=== PATIENT | female | born 1975 | race Caucasian/White ===

== ENCOUNTER 2020-01-25 04:39 | Emergency (ER) | payer BC ==
[2020-01-25] MEDS ORDERED: cefTRIAXone 1 GM Vial IM STA (06:19)
--- NOTE | 2020-01-25 06:25 | EDM.PDOC ---
ED HPI GENERAL MEDICAL PROBLEM - General Chief Complaint: ENT Problem Stated Complaint: facial swelling and broken tooth Time Seen by Provider: 01/25/20 04:53 Source of Information: Reports: Patient History Limitations: Reports: No Limitations - History of Present Illness INITIAL COMMENTS - FREE TEXT/NARRATIVE: Mrs. Duran is a very pleasant 44-year-old woman with a past medical history significant for diabetes, who states that she broke an upper right tooth while eating dinner this past Sunday night, 01/23/2020. She was seen by Dr. Elier Castellon at the walk-in clinic on 01/24/2020, and prescribed penicillin VK, 500 mg po QID, she states she started Sunday and has been taking as prescribed. She has taken a total of 4 doses so far. She then discovered the right side of her face was swollen this morning. Minimal pain, and no associated fever. No prior similar symptoms. The patient states that she took 600 mg of [id number]-[id number]-[id number] ibuprofen around 02:00 this morning. Here in the ED, the patient's initial BP is found to be modestly elevated at 161/80, otherwise, she is hemodynamically stable, afebrile, saturating 98% on room air. Other than her dental issue and facial swelling, the patient denies having a recent fever, chills, sore throat, ear pain, nasal or sinus congestion, cough, dyspnea, chest pain, palpitations, nausea, vomiting, constipation, diarrhea, abdominal pain, urinary symptoms, recent weight gain or weight loss, recent bloody bowel movements or black bowel movements, recent joint aches, headaches, or rashes. The patient's PCP is CLAIRE Newman. Her Emergency Planning And Response Manager is Dr. Francis Naidu. Her Single End Sewer is Dr. Luca Lynch. Right Tooth/Teeth Pain Score (Numeric/FACES): 4 - Related Data Allergies Allergy/AdvReac Type Severity Reaction Status Date / Time atorvastatin [From Lipitor] Allergy Severe Difficulty Verified 01/25/20 04:52 Breathing Past Medical History Cardiovascular History: Reports: High Cholesterol, Hypertension Genitourinary History: Reports: Chronic Renal Insuffiency Endocrine/Metabolic History: Reports: Diabetes, Type II, Obesity/BMI 30+ - Past Surgical History HEENT Surgical History: Reports: Adenoidectomy, Tonsillectomy Female Surgical History: Reports: Section (x 1), Endometrial Ablation, Other (See Below) (Ureteral surgery as an infant) Social & Family History - Tobacco Use Smoking Status *Q: Former Smoker Years of Tobacco use: 16 Packs/Tins Daily: 2 Month/Year Tobacco Last Used: Quit 2007 - Caffeine Use Caffeine Use: Reports: Coffee - Alcohol Use Alcohol Use History: No - Recreational Drug Use Recreational Drug Use: No - Living Situation & Occupation Living situation: Reports: , with Spouse, with Family (Daughter + her 2 kids + her boyfriend) Occupation: Employed (Medical records) ED ROS ENT - Review of Systems Review Of Systems: Comprehensive ROS is negative, except as noted in HPI. ED EXAM, ENT - Physical Exam Exam: See Below Exam Limited By: No Limitations General Appearance: Alert, WD/WN, No Apparent Distress Eye Exam: Bilateral Eye: EOMI, Normal Inspection Ears: Normal External Exam, Normal Canal, Hearing Grossly Normal, Normal TMs Nose: Normal Inspection, Normal Mucousa, No Blood Mouth/Throat: Normal Lips, Normal Oropharynx, Other (Tooth #1 absent. Tooth #3 with amalgam filling. Tooth #6 (the tooth of concern) with fracture and decay. No significant associated gingival swelling, and no pointing seen. Tooth #14 with amalgam filling. Teeth #16, 17, 18 absent. Tooth #19 with amalgam filling. Tooth #30 absent. Tooth #32 absent.) Head: Atraumatic, Facial Swelling (With mild erythema over the right maxilla. The swelling does not extend under the right mandible.) Neck: Normal Inspection, Supple, Non-Tender, Full Range of Motion. No: Lymphadenopathy (L), Lymphadenopathy (R) Course - Vital Signs Last Recorded V/S: Last Vital Signs Temp 36.6 C 01/25/20 04:47 Pulse 74 01/25/20 04:47 Resp 18 01/25/20 04:47 BP 161/80 H 01/25/20 04:47 Pulse Ox 98 01/25/20 04:47 - Orders/Labs/Meds Meds: Medications Discontinued Medications Generic Name Dose Route Start Last Admin Trade Name Freq PRN Reason Stop Dose Admin Ceftriaxone Sodium 1 gm 01/25/20 06:19 01/25/20 06:35 Rocephin IM 01/25/20 06:20 1 gm ONETIME STA Administration - Re-Assessments/Exams Free Text/Narrative Re-Assessment/Exam: 01/25/20 06:19 As above, the patient broke tooth #6 on Sunday night, 01/23/2020, was started on penicillin VK 500 mg po QID on Sunday, which she has taken 4 doses thus far, then woke up this morning with swelling over her right maxilla. No fever. No obvious abscess on dental examination, although tooth #6 is fractured and appears to be somewhat carious. The patient appears to have an oral facial space infection. I do not believe that it has been long enough to form an abscess, therefore I do not believe a CT of the face with contrast is indicated at this time. I believe that PCN VK is the right antibiotic for her, however, she has not been on it long enough to get control of the infection, leading to the swelling. For today's purposes, she will receive a single injection of IM Rocephin 1 g, then continue her PCN VK as prescribed. She should apply warm compresses. She should expect that the swelling will get worse before it gets better. She is to then follow-up with her dentist at her previously scheduled appointment this coming 01/27/2020. Departure - Departure Time of Disposition: 06:22 Disposition: Home, Self-Care 01 Condition: Good Clinical Impression: Dental infection - Discharge Information *PRESCRIPTION DRUG MONITORING PROGRAM REVIEWED*: Not Applicable *COPY OF PRESCRIPTION DRUG MONITORING REPORT IN PATIENT FADIA: Not Applicable Instructions: Dental Abscess, [id number] Referrals: Nilda Estrada PA-C [Primary Care Provider] - Forms: ED Department Discharge Additional Instructions: You were seen in the emergency room after breaking an upper right tooth on Sunday night, being started on penicillin on Sunday, then waking up this morning with right facial swelling. Based on your history and physical exam, you are suffering from oralfacial space swelling due to a dental infection. You were given a single injection of the antibiotic Rocephin while in the ER. Going forward, we recommend that you continue to take your previously prescribed penicillin, 1 tablet every 6 hours, as prescribed. We recommend that you apply warm compresses to your face, to stimulate local circulation. You may continue to take [id number] ibuprofen as needed for discomfort. You should expect that the swelling will get worse before it gets better. Follow-up with your dentist at your previously scheduled appointment this coming 01/27/2020. If any other problems, please do not hesitate to return to the ER. Sepsis Event Note (ED) - Evaluation Sepsis Screening Result: No Definite Risk - Focused Exam Vital Signs: Vital Signs Temp Pulse Resp BP Pulse Ox 01/25/20 04:47 36.6 C 74 18 161/80 H 98
== END 2020-01-25 06:40 | disposition home or self-care (01) ==
LOC: JD.ED 04:39
DX: K04.7 Periapical abscess without sinus (principal); K02.9 Dental caries, unspecified; K03.81 Cracked tooth; I12.9 Hypertensive chronic kidney disease with stage 1 through stage 4 chronic kidney disease, or unspecified chronic kidney disease; E11.22 Type 2 diabetes mellitus with diabetic chronic kidney disease; N18.9 Chronic kidney disease, unspecified; E66.9 Obesity, unspecified; Z87.891 Personal history of nicotine dependence; Z88.8 Allergy status to other drugs, medicaments and biological substances; Z68.41 Body mass index [BMI] 40.0-44.9, adult
CPT/HCPCS: 96372; 99282; J0696; 99283

== ENCOUNTER 2020-02-15 07:55 | Emergency (ER) | payer BC ==
[2020-02-15] MEDS ORDERED: Sodium Chloride 0.9% 10 ML Syringe FLUSH PRN (09:03)
[2020-02-15] MEDS ORDERED: Sodium Chloride 0.9% 1,000 ML IV ONE (09:03)
--- NOTE | 2020-02-15 09:11 | EDM.PDOC ---
ED HPI GENERAL MEDICAL PROBLEM - General Chief Complaint: Genitourinary Problem Stated Complaint: UNABLE TO EAT/COLD/JOINT PAIN/FREQUENT URINATION Time Seen by Provider: 02/15/20 08:42 Source of Information: Reports: Patient History Limitations: Reports: No Limitations - History of Present Illness INITIAL COMMENTS - FREE TEXT/NARRATIVE: Mrs. Duran is a very pleasant 44-year-old woman who states that she developed a fever, bilateral flank pain, and urinary frequency without dysuria on or about 02/11/2020. She states that she was seen at the walk-in clinic on , 02/13/2020. She states that a urinalysis was performed, and that she was told that she had a urinary tract infection. She was also swabbed for the SARS-CoV-2 virus, however, she has not been given that test result yet. She was prescribed ciprofloxacin once a day, which she states she has been taking as prescribed. She now presents the ED stating that she has had continued symptoms, along with decreased appetite, myalgias, arthralgias, and nausea with vomiting for solid food, but not for any liquids. She then developed a nonproductive cough last night. No recent constipation or diarrhea. Here in the ED, the patient is found to be tachycardic at 118 bpm, otherwise, she is hemodynamic stable, afebrile, saturating 94% on room air. The patient states that she ordinarily checks her blood glucose 3 times a day, but since she has been feeling ill, she has not checked it since Sunday. Prior to Sunday, the patient denies having a recent fever, chills, sore throat, ear pain, nasal or sinus congestion, cough, dyspnea, chest pain, palpitations, nausea, vomiting, constipation, diarrhea, abdominal pain, urinary symptoms, recent weight gain or weight loss, recent bloody bowel movements or black bowel movements, recent joint aches, headaches, or rashes. The patient's PCP is CLAIRE Newman. Her Health Informatics Instructor is Dr. Francis Naidu. Her Caretaker Grounds is Dr. Luca Lynch. Generalized Pain Score (Numeric/FACES): 7 - Related Data Allergies Allergy/AdvReac Type Severity Reaction Status Date / Time atorvastatin [From Lipitor] Allergy Severe Difficulty Verified 02/15/20 08:16 Breathing Home Meds: Home Meds Ciprofloxacin HCl [Cipro] 500 mg PO DAILY 02/15/20 [History] FLUoxetine HCl [Fluoxetine HCl] 20 mg PO DAILY 02/15/20 [History] Losartan [Cozaar] 50 mg PO DAILY 02/15/20 [History] Metoprolol Tartrate 50 mg PO DAILY 02/15/20 [History] Omeprazole 20 mg PO DAILY 02/15/20 [History] Ondansetron [Zofran ODT] 1 tab PO Q8H PRN #10 tab.dis 02/15/20 [Rx] Simvastatin 40 mg PO DAILY 02/15/20 [History] Trujeo. 36 units SQ DAILY 02/15/20 [History] metFORMIN HCl [Metformin HCl] 1,000 mg PO BID 02/15/20 [History] Past Medical History Cardiovascular History: Reports: High Cholesterol, Hypertension Genitourinary History: Reports: Chronic Renal Insuffiency Endocrine/Metabolic History: Reports: Diabetes, Type II, Obesity/BMI 30+ - Past Surgical History HEENT Surgical History: Reports: Adenoidectomy, Tonsillectomy Female Surgical History: Reports: Section (x 1), Endometrial Ablation, Other (See Below) (Ureteral surgery as an ) Social & Family History - Tobacco Use Years of Tobacco use: 16 Packs/Tins Daily: 2 Month/Year Tobacco Last Used: Quit 2007 - Caffeine Use Caffeine Use: Reports: Coffee - Alcohol Use Alcohol Use History: No - Recreational Drug Use Recreational Drug Use: No - Living Situation & Occupation Living situation: Reports: , with Spouse, with Family (Daughter + her 2 kids + her boyfriend) Occupation: Employed (Medical records) ED ROS GENERAL - Review of Systems Review Of Systems: Comprehensive ROS is negative, except as noted in HPI. ED EXAM, GENERAL - Physical Exam Exam: See Below Exam Limited By: No Limitations General Appearance: Alert, WD/WN, Other (Notably tachypneic) Eye Exam: Bilateral Eye: EOMI, Normal Inspection Ears: Normal External Exam, Hearing Grossly Normal Nose: Normal Inspection Throat/Mouth: Normal Inspection, Normal Lips, Normal Voice, No Airway Compromise Head: Atraumatic, Normocephalic Neck: Normal Inspection, Full Range of Motion Respiratory/Chest: No Respiratory Distress, Lungs Clear, Normal Breath Sounds, No Accessory Muscle Use Cardiovascular: Normal Peripheral Pulses, No Gallop, No JVD, No Murmur, No Rub, Tachycardia (regular) Peripheral Pulses: 3+: Radial (L), Radial (R) GI/Abdominal: Normal Bowel Sounds, Soft, Non-Tender, No Organomegaly, No Distention, No Abnormal Bruit, No Mass Back Exam: Normal Inspection, Full Range of Motion, CVA Tenderness (L) (very mild, lower), CVA Tenderness (R) (very mild, lower) Extremities: Normal Inspection, Normal Range of Motion, Normal Capillary Refill Neurological: Alert, Oriented, Normal Cognition, No Motor/Sensory Deficits Psychiatric: Normal Affect Skin Exam: Warm, Intact, Normal Color, No Rash, Diaphoretic Course - Vital Signs Last Recorded V/S: Last Vital Signs Temp 36.4 C 02/15/20 08:11 Pulse 118 H 02/15/20 08:11 Resp 28 H 02/15/20 08:11 BP 129/78 02/15/20 08:11 Pulse Ox 94 L 02/15/20 08:11 - Orders/Labs/Meds Orders: Active Orders 24 hr Category Date Time Status Accu Check [Blood Glucose Check, Bedside] [RC] ONETIME Care 02/15/20 08:16 Active Blood Pressure Mgt: Sepsis [RC] Q15MX2 Care 02/15/20 09:04 Active Chest 2V [CR] Stat Exams 02/15/20 09:03 Taken CULTURE BLOOD [BC] Stat Lab 02/15/20 09:25 Received CULTURE BLOOD [BC] Stat Lab 02/15/20 09:32 Received Sodium Chloride 0.9% [Saline Flush] Med 02/15/20 09:03 Active 10 ml FLUSH ASDIRECTED PRN Blood Culture x2 Reflex Set [OM.PC] Stat Oth 02/15/20 09:03 Ordered Saline Lock Insert [OM.PC] Stat Oth 02/15/20 09:03 Ordered Medication Orders Sodium Chloride (Saline Flush) 10 ml FLUSH ASDIRECTED PRN PRN Reason: Keep Vein Open Last Admin: 02/15/20 09:56 Dose: 10 ml Documented by: [facility] Labs: Laboratory Tests 02/15/20 02/15/20 02/15/20 Range/Units 09:25 09:25 09:25 WBC 6.57 (3.98-10.04) K/mm3 RBC 4.54 (3.98-5.22) M/mm3 Hgb 13.5 (11.2-15.7) gm/dl Hct 41.4 (34.1-44.9) % MCV 91.2 (79.4-94.8) fl MCH 29.7 (25.6-32.2) pg MCHC 32.6 (32.2-35.5) g/dl RDW Std Deviation 45.7 (36.4-46.3) fL Plt Count 268 (182-369) K/mm3 MPV 9.0 L (9.4-12.3) fl Neutrophils % (Manual) 94 H (40-60) % Band Neutrophils % 0 (0-10) % Lymphocytes % (Manual) 6 L (20-40) % Atypical Lymphs % 0 % Monocytes % (Manual) 0 L (2-10) % Eosinophils % (Manual) 0 L (0.7-5.8) % Basophils % (Manual) 0 L (0.1-1.2) Platelet Estimate Adequate RBC Morph Comment Normal Sodium 136 (136-145) mEq/L Potassium 3.7 (3.5-5.1) mEq/L Chloride 99 (98-107) mEq/L Carbon Dioxide 19 L (21-32) mEq/L Anion Gap 21.7 H (5-15) BUN 18 (7-18) mg/dL Creatinine 1.3 H (0.55-1.02) mg/dL Est Cr Clr Drug Dosing 42.77 mL/min Estimated GFR (MDRD) 44 (>60) mL/min BUN/Creatinine Ratio 13.8 L (14-18) Glucose 161 H (74-106) mg/dL POC Glucose (70-105) mg/dL Lactic Acid 0.9 (0.4-2.0) mmol/L Calcium 8.8 (8.5-10.1) mg/dL Total Bilirubin 0.4 (0.2-1.0) mg/dL AST 25 (15-37) U/L ALT 44 (14-59) U/L Alkaline Phosphatase 101 (46-116) U/L C-Reactive Protein 24.3 H* (<1.0) mg/dL Total Protein 7.8 (6.4-8.2) g/dl Albumin 2.6 L (3.4-5.0) g/dl Globulin 5.2 gm/dL Albumin/Globulin Ratio 0.5 L (1-2) Urine Color (Yellow) Urine Appearance (Clear) Urine pH (5.0-8.0) Ur Specific [place] (1.005-1.030) Urine Protein (Negative) Urine Glucose (UA) (Negative) Urine Ketones (Negative) Urine Occult Blood (Negative) Urine Nitrite (Negative) Urine Bilirubin (Negative) Urine Urobilinogen (0.2-1.0) Ur Leukocyte Esterase (Negative) Urine RBC (0-5) /hpf Urine WBC (0-5) /hpf Ur Epithelial Cells (0-5) /hpf Urine Bacteria (FEW) /hpf Urine Mucus (FEW) /hpf Urine HCG, Qual (NEGATIVE) SARS-CoV-2 RNA (RAQUEL) (NEGATIVE) 02/15/20 02/15/20 02/15/20 Range/Units 09:28 09:32 09:50 WBC (3.98-10.04) K/mm3 RBC (3.98-5.22) M/mm3 Hgb (11.2-15.7) gm/dl Hct (34.1-44.9) % MCV (79.4-94.8) fl MCH (25.6-32.2) pg MCHC (32.2-35.5) g/dl RDW Std Deviation (36.4-46.3) fL Plt Count (182-369) K/mm3 MPV (9.4-12.3) fl Neutrophils % (Manual) (40-60) % Band Neutrophils % (0-10) % Lymphocytes % (Manual) (20-40) % Atypical Lymphs % % Monocytes % (Manual) (2-10) % Eosinophils % (Manual) (0.7-5.8) % Basophils % (Manual) (0.1-1.2) Platelet Estimate RBC Morph Comment Sodium (136-145) mEq/L Potassium (3.5-5.1) mEq/L Chloride (98-107) mEq/L Carbon Dioxide (21-32) mEq/L Anion Gap (5-15) BUN (7-18) mg/dL Creatinine (0.55-1.02) mg/dL Est Cr Clr Drug Dosing mL/min Estimated GFR (MDRD) (>60) mL/min BUN/Creatinine Ratio (14-18) Glucose (74-106) mg/dL POC Glucose 152 H (70-105) mg/dL Lactic Acid (0.4-2.0) mmol/L Calcium (8.5-10.1) mg/dL Total Bilirubin (0.2-1.0) mg/dL AST (15-37) U/L ALT (14-59) U/L Alkaline Phosphatase (46-116) U/L C-Reactive Protein (<1.0) mg/dL Total Protein (6.4-8.2) g/dl Albumin (3.4-5.0) g/dl Globulin gm/dL Albumin/Globulin Ratio (1-2) Urine Color Yellow (Yellow) Urine Appearance Clear (Clear) Urine pH 6.0 (5.0-8.0) Ur Specific [place] > or = 1.030 (1.005-1.030) Urine Protein 3+ H (Negative) Urine Glucose (UA) Negative (Negative) Urine Ketones Trace H (Negative) Urine Occult Blood 2+ H (Negative) Urine Nitrite Negative (Negative) Urine Bilirubin 1+ H (Negative) Urine Urobilinogen 0.2 (0.2-1.0) Ur Leukocyte Esterase Negative (Negative) Urine RBC 0-5 (0-5) /hpf Urine WBC 5-10 H (0-5) /hpf Ur Epithelial Cells 0-5 (0-5) /hpf Urine Bacteria Few (FEW) /hpf Urine Mucus Rare (FEW) /hpf Urine HCG, Qual (NEGATIVE) SARS-CoV-2 RNA (RAQUEL) Positive H (NEGATIVE) 02/15/20 Range/Units 09:50 WBC (3.98-10.04) K/mm3 RBC (3.98-5.22) M/mm3 Hgb (11.2-15.7) gm/dl Hct (34.1-44.9) % MCV (79.4-94.8) fl MCH (25.6-32.2) pg MCHC (32.2-35.5) g/dl RDW Std Deviation (36.4-46.3) fL Plt Count (182-369) K/mm3 MPV (9.4-12.3) fl Neutrophils % (Manual) (40-60) % Band Neutrophils % (0-10) % Lymphocytes % (Manual) (20-40) % Atypical Lymphs % % Monocytes % (Manual) (2-10) % Eosinophils % (Manual) (0.7-5.8) % Basophils % (Manual) (0.1-1.2) Platelet Estimate RBC Morph Comment Sodium (136-145) mEq/L Potassium (3.5-5.1) mEq/L Chloride (98-107) mEq/L Carbon Dioxide (21-32) mEq/L Anion Gap (5-15) BUN (7-18) mg/dL Creatinine (0.55-1.02) mg/dL Est Cr Clr Drug Dosing mL/min Estimated GFR (MDRD) (>60) mL/min BUN/Creatinine Ratio (14-18) Glucose (74-106) mg/dL POC Glucose (70-105) mg/dL Lactic Acid (0.4-2.0) mmol/L Calcium (8.5-10.1) mg/dL Total Bilirubin (0.2-1.0) mg/dL AST (15-37) U/L ALT (14-59) U/L Alkaline Phosphatase (46-116) U/L C-Reactive Protein (<1.0) mg/dL Total Protein (6.4-8.2) g/dl Albumin (3.4-5.0) g/dl Globulin gm/dL Albumin/Globulin Ratio (1-2) Urine Color (Yellow) Urine Appearance (Clear) Urine pH (5.0-8.0) Ur Specific [place] (1.005-1.030) Urine Protein (Negative) Urine Glucose (UA) (Negative) Urine Ketones (Negative) Urine Occult Blood (Negative) Urine Nitrite (Negative) Urine Bilirubin (Negative) Urine Urobilinogen (0.2-1.0) Ur Leukocyte Esterase (Negative) Urine RBC (0-5) /hpf Urine WBC (0-5) /hpf Ur Epithelial Cells (0-5) /hpf Urine Bacteria (FEW) /hpf Urine Mucus (FEW) /hpf Urine HCG, Qual Negative (NEGATIVE) SARS-CoV-2 RNA (RAQUEL) (NEGATIVE) Meds: Medications Generic Name Dose Route Start Last Admin Trade Name Freq PRN Reason Stop Dose Admin Sodium Chloride 10 ml 02/15/20 09:03 02/15/20 09:56 Saline Flush FLUSH 10 ml ASDIRECTED PRN Administration Keep Vein Open Discontinued Medications Generic Name Dose Route Start Last Admin Trade Name Lucinda PRN Reason Stop Dose Admin Sodium Chloride 1,000 mls @ 999 mls/hr 02/15/20 09:03 02/15/20 09:56 Normal Saline IV 02/15/20 10:03 999 mls/hr BOLUS ONE Administration Protocol Ondansetron HCl 4 mg 02/15/20 12:18 02/15/20 12:28 Zofran Odt PO 02/15/20 12:19 4 mg ONETIME ONE Administration - Re-Assessments/Exams Free Text/Narrative Re-Assessment/Exam: 02/15/20 09:06 As above, the patient developed a fever, urinary frequency, and bilateral flank pain on or about 02/11/2020, then nausea and emesis with solid food and , 02/12/2020. She was seen at the walk-in clinic and told that she has a UTI. She was started on ciprofloxacin once a day, which she has been taking as prescribed, but she continues to have the same symptoms, along with decreased appetite, myalgias, and arthralgias. She developed a nonproductive cough last night. Here in the ED, she is tachycardic and tachypneic, although afebrile. Lamination, she is noted to be quite diaphoretic. She has very mild bilateral lower flank tenderness, otherwise, her physical exam is unremarkable. I have ordered a work-up that includes an Accu-Chek, blood work, sets of blood cultures, a urinalysis, a urine test, a chest x-ray, and a swab for the SARS-CoV-2 virus. In the meantime, the patient will be given IV fluid. 02/15/20 10:31 Notified by Johnny in laboratory that the patient's swab for the SARS-CoV-2 virus has returned positive. 02/15/20 10:46 The patient's CBC is unremarkable. Her CMP is remarkable for a bicarbonate slightly depressed at 19, with an anion gap elevated 21.7. Her Cr slightly elevated at 1.3 with a BUN normal at 18, and blood glucose elevated at 161, with the remainder of her CMP being unremarkable. Her lactic acid level is within normal limits at 0.9. Her CRP is elevated at 24.3. Her urinalysis is remarkable for 2+ occult blood with 0-5 RBCs, negative leukocyte esterase with 5-10 WBCs, nitrate negative with few bacteria, and 0-5 squamous epithelial cells. Her urine test is negative. The chest x-ray has not yet been obtained. 02/15/20 11:04 Two-view chest radiograph reviewed. The cardiac silhouette is within normal limits. No pulmonary vascular congestion. No pleural effusions. There are bilateral hazy infiltrates, consistent with a viral pneumonia or COVID-19. No pneumothorax. Formal read per the Radiologist pending. 02/15/20 12:09 Test results discussed with the patient. Above, the patient is COVID-19, but the remainder of her work-up was grossly unremarkable. I explained to the patient that the trigger for initiation of treatment for COVID-19 is hypoxemia, and at present, the patient is not hypoxemic. I therefore do not have an indication to admit her to the hospital. You will need to quarantine until she tests negative. I explained that there are no specific treatments for her to take, and I recommended against mrql-gwz-mxqdoyh cough or cold remedies, as they have been shown to be of no benefit. Additionally, I advised against routine treatment of fever, as fever is an important part of her immune response to the virus. I suggested that she purchase, if she can, and ixrn-huz-siiczmx pulse o ximeter, because if she becomes hypoxemic, she needs to return to the ED to initiate treatment. The patient expressed understanding. Departure - Departure Time of Disposition: 12:11 Disposition: Home, Self-Care 01 Condition: Good Clinical Impression: COVID-19, Hyperglycemia due to type 2 diabetes mellitus - Discharge Information *PRESCRIPTION DRUG MONITORING PROGRAM REVIEWED*: Not Applicable *COPY OF PRESCRIPTION DRUG MONITORING REPORT IN PATIENT FADIA: Not Applicable Prescriptions: Ondansetron [Zofran ODT] 1 tab PO Q8H PRN #10 tab.dis PRN Reason: Nausea/Vomiting Instructions: COVID-19 Referrals: Nilda Estrada PA-C [Primary Care Provider] - Francis Naidu MD [Physician] - Luca Lynch MD [Ordering Only Provider] - Forms: ED Department Discharge Additional Instructions: You were seen in the emergency room for urinary frequency, decreased appetite, muscle aches, joint aches, nausea with vomiting of solid food, a fever, and a dry cough. Work-up in the ER included an Accu-Chek, blood work, 2 sets of blood cultures, a urinalysis, a urine test, a chest x-ray, and a swab for the SARS-CoV-2 virus. Your work-up was remarkable for your blood glucose being elevated at 161, and the test for the SARS-CoV-2 virus returning positive. The remainder of your work-up was unremarkable. The antibiotics that you are currently taking for treatment of a urinary tract infection appears to be effective. We recommend that you continue to take the ciprofloxacin once a day as prescribed. As discussed, it is imperative that you quarantine until you tested negative. On average people with COVID-19 remain test-positive for 10 days, although some people remain positive for much longer. As discussed, there are no specific treatments for your symptoms. We recommend that you not take any asov-ejf-nekreov cough or cold remedies, as they have been shown to be of no benefit. Further, we advise that you not take any lzrc-jrt-znhmitw Tylenol or ibuprofen to treat your symptoms of fever, as fever is an important part of your immune response to this virus. A prescription for the anti-nausea medicine Zofran has been sent to the [facility], located just south and across the [address] from [facility]. They will be open until 4:00 this afternoon. You may dissolve 1 tablet of Zofran on your tongue up to every 8 hours, as needed for nausea/vomiting. If possible, we recommend that you purchase an gupg-eoi-ylmnjwe pulse oximeter. If your oxygen saturation drops to the low 90s or high 80s, you need to return to the ER for reevaluation. If any other problems, please do not hesitate to return to the ER. Sepsis Event Note (ED) - Evaluation Sepsis Screening Result: No Definite Risk - Focused Exam Vital Signs: Vital Signs Temp Pulse Resp BP Pulse Ox 02/15/20 08:11 36.4 C 118 H 28 H 129/78 94 L - My Orders Last 24 Hours: My Active Orders 02/15/20 08:16 Accu Check [Blood Glucose Check, Bedside] [RC] ONETIME 02/15/20 09:03 Chest 2V [CR] Stat Sodium Chloride 0.9% [Saline Flush] 10 ml FLUSH ASDIRECTED PRN Blood Culture x2 Reflex Set [OM.PC] Stat Saline Lock Insert [OM.PC] Stat 02/15/20 09:04 Blood Pressure Mgt: Sepsis [RC] Q15MX2 02/15/20 09:25 CULTURE BLOOD [BC] Stat 02/15/20 09:32 CULTURE BLOOD [BC] Stat - Assessment/Plan Last 24 Hours: My Active Orders 02/15/20 08:16 Accu Check [Blood Glucose Check, Bedside] [RC] ONETIME 02/15/20 09:03 Chest 2V [CR] Stat Sodium Chloride 0.9% [Saline Flush] 10 ml FLUSH ASDIRECTED PRN Blood Culture x2 Reflex Set [OM.PC] Stat Saline Lock Insert [OM.PC] Stat 02/15/20 09:04 Blood Pressure Mgt: Sepsis [RC] Q15MX2 02/15/20 09:25 CULTURE BLOOD [BC] Stat 02/15/20 09:32 CULTURE BLOOD [BC] Stat
[2020-02-15] MEDS ORDERED: Ondansetron 4 MG Tab.DIS PO ONE (12:18)
== END 2020-02-15 12:40 | disposition home or self-care (01) ==
LOC: JD.ED 07:55
DX: U07.1 COVID-19 (principal); E11.65 Type 2 diabetes mellitus with hyperglycemia; E78.00 Pure hypercholesterolemia, unspecified; I12.9 Hypertensive chronic kidney disease with stage 1 through stage 4 chronic kidney disease, or unspecified chronic kidney disease; N18.9 Chronic kidney disease, unspecified; E11.22 Type 2 diabetes mellitus with diabetic chronic kidney disease; F17.210 Nicotine dependence, cigarettes, uncomplicated; E66.9 Obesity, unspecified; Z68.41 Body mass index [BMI] 40.0-44.9, adult; Z88.8 Allergy status to other drugs, medicaments and biological substances; Z79.899 Other long term (current) drug therapy; Z20.828 Contact with and (suspected) exposure to other viral communicable diseases; Z79.84 Long term (current) use of oral hypoglycemic drugs
CPT/HCPCS: 36415; 71046; 80053; 81001; 81025; 82962; 83605; 85007; 85027; 86140; 87040; 87635; 96360; 99284; A9270; J7030; U0002

== ENCOUNTER 2020-04-13 08:51 | Emergency (ER) | payer BC ==
--- NOTE | 2020-04-13 09:51 | EDM.PDOC ---
ED HPI GENERAL MEDICAL PROBLEM - General Chief Complaint: Respiratory Problem Stated Complaint: SOB Time Seen by Provider: 04/13/20 09:30 Source of Information: Reports: Patient History Limitations: Reports: No Limitations - History of Present Illness INITIAL COMMENTS - FREE TEXT/NARRATIVE: 44-year-old female with a history of Covid diagnosis on February 12. She states on that day she went to the clinic and saw her provider and she was started on a prednisone pack for shortness of breath and cough she said that did seem to help but within 3 days of being off of the prednisone pack her cough and shortness of breath again worsened and she returned to the walk-in clinic where they did a chest x-ray and questioned pneumonia so then started her on doxycycline and a second prednisone pack. She states that that did help as well but since being off of that she has had increased shortness of breath. Of note she was also given an albuterol inhaler which she was instructed to take every 4 hours and as needed. She states she has been using this since her February 12 diagnosis every 4 hours and every 2 hours in between. She has been unable to sleep lying flat, so she has been sleeping in her recliner since February 12. She states that she now has a productive cough of green chunks of sputum and has significant shortness of breath at rest so she presents to the ED today. Denies any other respiratory symptoms, chest pain, fever chills, nausea, vomiting, diarrhea, or general malaise. Patient is not a smoker. She is an insulin-dependent diabetic for which she takes Toujeo, she has a history of hypertension and is treated with metoprolol and Cozaar, and she has a history of high cholesterol. No other significant medical history noted. Onset: Gradual Treatments INDUSTRIAL SEWER: Reports: Breathing Treatments - Related Data Allergies Allergy/AdvReac Type Severity Reaction Status Date / Time atorvastatin [From Lipitor] Allergy Severe Difficulty Verified 04/13/20 08:58 Breathing Home Meds: Home Meds FLUoxetine HCl [Fluoxetine HCl] 20 mg PO DAILY 02/15/20 [History] Losartan [Cozaar] 50 mg PO DAILY 02/15/20 [History] Metoprolol Tartrate 50 mg PO DAILY 02/15/20 [History] Omeprazole 20 mg PO DAILY 02/15/20 [History] Ondansetron [Zofran ODT] 1 tab PO Q8H PRN #10 tab.dis 02/15/20 [Rx] Simvastatin 40 mg PO DAILY 02/15/20 [History] Trujeo. 36 units SQ DAILY 02/15/20 [History] metFORMIN HCl [Metformin HCl] 1,000 mg PO BID 02/15/20 [History] Past Medical History Cardiovascular History: Reports: High Cholesterol, Hypertension Gastrointestinal History: Reports: GERD Genitourinary History: Reports: Chronic Renal Insuffiency CUSTOMER OPERATIONS ASSOCIATE History: Reports: Other (See Below) Other CUSTOMER OPERATIONS ASSOCIATE History: c sections Endocrine/Metabolic History: Reports: Diabetes, Type II, Obesity/BMI 30+ - Infectious Disease History Infectious Disease History: Reports: Novel Coronavirus - Past Surgical History HEENT Surgical History: Reports: Adenoidectomy, Tonsillectomy Female Surgical History: Reports: Section, Endometrial Ablation, Other (See Below) Other Female Surgeries/Procedures: 2013 Social & Family History - Tobacco Use Tobacco Use Status *Q: Never Tobacco User Second Hand Smoke Exposure: No - Caffeine Use Caffeine Use: Reports: Coffee, Soda - Recreational Drug Use Recreational Drug Use: No - Living Situation & Occupation Living situation: Reports: , with Spouse, with Family (Daughter + her 2 kids + her boyfriend) Occupation: Employed (Medical records) ED ROS GENERAL - Review of Systems Review Of Systems: See Below Constitutional: Denies: Fever, Chills, Malaise, Diaphoresis HEENT: Reports: No Symptoms. Denies: Sinus Problem, Throat Pain Respiratory: Reports: Shortness of Breath, Cough, Sputum (Green chunks as described by patient). Denies: Wheezing Cardiovascular: Reports: Dyspnea on Exertion, Orthopnea. Denies: Chest Pain, Edema, Palpitations Endocrine: Reports: High Glucose GI/Abdominal: Reports: No Symptoms. Denies: Abdominal Pain, Diarrhea, Nausea, Vomiting : Reports: No Symptoms Musculoskeletal: Reports: No Symptoms Skin: Reports: No Symptoms Neurological: Reports: No Symptoms Psychiatric: Reports: No Symptoms Hematologic/Lymphatic: Reports: No Symptoms Immunologic: Reports: No Symptoms ED EXAM, GENERAL - Physical Exam Exam: See Below Exam Limited By: No Limitations General Appearance: Alert, WD/WN, Moderate Distress (Patient is tachypneic) Ears: Normal External Exam, Hearing Grossly Normal Nose: Normal Inspection. No: Nasal Drainage Throat/Mouth: Normal Inspection, Normal Lips, Normal Teeth, No Airway Compromise Head: Atraumatic, Normocephalic Neck: Normal Inspection, Supple, Non-Tender Respiratory/Chest: Chest Non-Tender, Decreased Breath Sounds, Wheezing (Expiratory wheeze noted in the left posterior lobe), Accessory Muscle Use, Other (Is tachypneic at rest) Cardiovascular: Normal Peripheral Pulses, Regular Rate, Rhythm, No Edema, No Murmur GI/Abdominal: Normal Bowel Sounds, Soft, Non-Tender, No Distention (Female) Exam: Deferred Rectal (Female) Exam: Deferred Back Exam: Normal Inspection, Full Range of Motion Extremities: Normal Inspection, Normal Range of Motion, Non-Tender, No Pedal Edema, Normal Capillary Refill Neurological: Alert, Oriented, Normal Cognition Psychiatric: Normal Affect, Normal Mood Skin Exam: Warm, Dry, Intact, Normal Color Lymphatic: No Adenopathy Course - Vital Signs Text/Narrative:: I have ordered a chest x-ray, CBC, CMP, C-reactive protein, troponin and an EKG. Of note patient does deny chest pain. Last Recorded V/S: Last Vital Signs Temp 97.6 F 04/13/20 08:59 Pulse 81 04/13/20 08:59 Resp 27 H 04/13/20 08:59 BP 140/70 04/13/20 08:59 Pulse Ox 97 04/13/20 08:59 - Orders/Labs/Meds Orders: Active Orders 24 hr Category Date Time Status EKG Documentation Completion [RC] STAT Care 04/13/20 09:34 Active IS (RT) [RT Incentive Spirometry] [RC] Q1HWA Care 04/13/20 10:34 Ordered Chest 1V Frontal [CR] Stat Exams 04/13/20 09:35 Taken Labs: Laboratory Tests 04/13/20 04/13/20 04/13/20 Range/Units 09:45 09:45 09:45 WBC 12.29 H (3.98-10.04) K/mm3 RBC 4.66 (3.98-5.22) M/mm3 Hgb 14.0 (11.2-15.7) gm/dl Hct 43.4 (34.1-44.9) % MCV 93.1 (79.4-94.8) fl MCH 30.0 (25.6-32.2) pg MCHC 32.3 (32.2-35.5) g/dl RDW Std Deviation 46.5 H (36.4-46.3) fL Plt Count 277 (182-369) K/mm3 MPV 9.2 L (9.4-12.3) fl Neut % (Auto) 77.9 H (34.0-71.1) % Lymph % (Auto) 11.1 L (19.3-51.7) % [place] % (Auto) 5.2 (4.7-12.5) % Eos % (Auto) 5.2 (0.7-5.8) Baso % (Auto) 0.4 (0.1-1.2) % Neut # (Auto) 9.56 H (1.56-6.13) K/mm3 Lymph # (Auto) 1.37 (1.18-3.74) K/mm3 [place] # (Auto) 0.64 H (0.24-0.36) K/mm3 Eos # (Auto) 0.64 H (0.04-0.36) K/mm3 Baso # (Auto) 0.05 (0.01-0.08) K/mm3 Manual Slide Review Normal smear D-Dimer, Quantitative 0.40 (0.19-0.50) mg/L Sodium 134 L (136-145) mEq/L Potassium 4.0 (3.5-5.1) mEq/L Chloride 100 (98-107) mEq/L Carbon Dioxide 21 (21-32) mEq/L Anion Gap 17.0 H (5-15) BUN 32 H (7-18) mg/dL Creatinine 1.4 H (0.55-1.02) mg/dL Est Cr Clr Drug Dosing 39.71 mL/min Estimated GFR (MDRD) 40 (>60) mL/min BUN/Creatinine Ratio 22.9 H (14-18) Glucose 145 H (74-106) mg/dL Calcium 9.1 (8.5-10.1) mg/dL Total Bilirubin 0.3 (0.2-1.0) mg/dL AST 18 (15-37) U/L ALT 35 (14-59) U/L Alkaline Phosphatase 56 (46-116) U/L Troponin I < 0.017 (0.00-0.056) ng/mL C-Reactive Protein 1.1 H* (<1.0) mg/dL Total Protein 6.9 (6.4-8.2) g/dl Albumin 3.2 L (3.4-5.0) g/dl Globulin 3.7 gm/dL Albumin/Globulin Ratio 0.9 L (1-2) - Re-Assessments/Exams Free Text/Narrative Re-Assessment/Exam: 04/13/20 09:53 EKGs shows a normal sinus rhythm no acute changes rate of 76 04/13/20 10:47 Labs reveal WBC 12.29, I suspect this is due to to recent prednisone pack that was just completed 2 days ago not an infective process, D-dimer 0.40, BUN 32, creatinine 1.4, GFR 40, glucose 145, troponin less than 0.017, C-reactive protein 1.1 which is significantly decreased from ER visit on February 14. Chest x-ray as compared to previous x-ray taken on February 14 shows no infective process or congestion noted. 04/13/20 10:47 It appears patient just has residual respiratory effects due to Covid, and steroids are wearing off as patient completed prednisone Dosepak 2 to 3 days ago. I have ordered an incentive spirometer for the patient and encouraged to use this every 1 hour while awake. I have also encouraged her to increase her activity and ambulation and not remain sedentary. Patient verbalizes understanding. Departure - Departure Time of Disposition: 10:49 Disposition: Home, Self-Care 01 Condition: Good Clinical Impression: COVID-19 - Discharge Information Referrals: Nilda Estrada PA-C [Primary Care Provider] - Forms: ED Department Discharge Additional Instructions: Discharge to home. You need to be using your incentive spirometer 10 times every hour while awake. I also encourage you to use this while at work as your job is relatively sedentary. Increase activity when at home, begin with short walks around the block to increase lung function. May continue to use albuterol inhaler every 4 hours as needed. If at all possible attempt to sleep on your stomach or at least nap. Follow-up with your primary care physician as needed. Should you experience increased shortness of breath or your condition worsens or changes follow-up with your primary care provider or return to the ER. Sepsis Event Note (ED) - Evaluation Sepsis Screening Result: No Definite Risk - Focused Exam Vital Signs: Vital Signs Temp Pulse Resp BP Pulse Ox 04/13/20 08:59 97.6 F 81 27 H 140/70 97 - My Orders Last 24 Hours: My Active Orders 04/13/20 09:34 EKG Documentation Completion [RC] STAT 04/13/20 09:35 Chest 1V Frontal [CR] Stat 04/13/20 10:34 IS (RT) [RT Incentive Spirometry] [RC] Q1HWA - Assessment/Plan Last 24 Hours: My Active Orders 04/13/20 09:34 EKG Documentation Completion [RC] STAT 04/13/20 09:35 Chest 1V Frontal [CR] Stat 04/13/20 10:34 IS (RT) [RT Incentive Spirometry] [RC] Q1HWA
--- NOTE | 2020-04-13 11:15 | CR ---
Chest: Portable view of the chest was obtained. Comparison: No prior chest imaging is available. Findings: Heart and mediastinum: Heart and mediastinum are within normal limits. No mediastinal mass is seen. Lungs: Lungs are clear without acute infiltrates. No pleural effusions are seen. Osseous: No acute osseous finding is seen. Impression: 1. Nothing acute is appreciated on portable chest x-ray. Diagnostic code #1
== END 2020-04-13 11:10 | disposition home or self-care (01) ==
LOC: JD.ED 08:51
DX: U07.1 COVID-19 (principal); I12.9 Hypertensive chronic kidney disease with stage 1 through stage 4 chronic kidney disease, or unspecified chronic kidney disease; N18.9 Chronic kidney disease, unspecified; E11.22 Type 2 diabetes mellitus with diabetic chronic kidney disease; E66.9 Obesity, unspecified; K21.9 Gastro-esophageal reflux disease without esophagitis; Z68.41 Body mass index [BMI] 40.0-44.9, adult; Z88.8 Allergy status to other drugs, medicaments and biological substances; Z79.84 Long term (current) use of oral hypoglycemic drugs
CPT/HCPCS: 36415; 71045; 71045-26; 80053; 84484; 85025; 85379; 86140; 93005; 93010; 99283; 99285-25

== ENCOUNTER 2024-05-28 07:24 | Emergency (ER) | payer BC ==
[2024-05-28] MEDS: Sodium Chloride 0.9% 1,000 ML IV ONE (08:49)
[2024-05-28] MEDS: Ondansetron 4 MG/2 ML SDV IVPUSH ONE (08:49)
[2024-05-28] MEDS: Morphine 4 MG/ML Syringe IVPUSH ONE (08:49)
[2024-05-28 09:00] LABS: BASOPHILS PERCENT AUTO 0.3 % (0.0-1.0); EOSINOPHILS ABSOLUTE AUTO 0.1 K/mm3 (0.0-0.4); EOSINOPHILS PERCENT AUTO 1.2 % (0.0-6.0); HEMATOCRIT 50.7 % (37.0-47.0); HEMOGLOBIN 16.5 gm/dl (12.0-16.0); IMMATURE GRAN ABSOLUTE AUTO 0.02 K/mm3 (0.00-0.05); IMMATURE GRAN PERCENT AUTO 0.2 % (0.0-0.4); LYMPHOCYTES ABSOLUTE AUTO 2.1 K/mm3 (1.0-4.8); LYMPHOCYTES PERCENT AUTO 23.2 % (24.0-44.0); MEAN CORPUSCULAR HEMOGLOBIN 30.4 pg (28.0-32.0); MEAN CORPUSCULAR HGB CONC 32.5 g/dl (32.0-36.0); MEAN CORPUSCULAR VOLUME 93.5 fl (83.0-99.0); MEAN PLATELET VOLUME 9.1 fl (9.4-12.3); MONOCYTES ABSOLUTE AUTO 0.7 K/mm3 (0.0-0.8); MONOCYTES PERCENT AUTO 7.7 % (0.0-8.0); NEUTROPHILS ABSOLUTE AUTO 6.1 K/mm3 (1.8-7.7); NEUTROPHILS PERCENT AUTO 67.4 % (41.0-71.0); PLATELET COUNT,PLT 280 K/mm3 (150-400); RED BLOOD CELL COUNT 5.42 M/mm3 (4.10-5.30); WHITE BLOOD CELL COUNT,WBC 8.98 K/mm3 (3.9-11.3)
[2024-05-28 09:18] LABS: ALBUMIN 4.1 g/dl (3.4-5.0); ANION GAP 20.9 (5-15); BILIRUBIN TOTAL 0.4 mg/dL (0.2-1.0); BUN/CREATININE RATIO 18.3 (14-18); CALCIUM 10.1 mg/dL (8.5-10.1); CREATININE 1.8 mg/dL (0.55-1.02); EST CRCL DRUG DOSING (CG) 29.57 mL/min; MAGNESIUM 2.2 mg/dL (1.8-2.4); POTASSIUM,K 3.9 mEq/L (3.5-5.1); PROTEIN TOTAL,TP 8.2 g/dl (6.4-8.2)
== END 2024-05-28 10:39 | disposition home or self-care (01) ==
LOC: JD.ED 07:24
DX: K81.9 Cholecystitis, unspecified (principal); I12.9 Hypertensive chronic kidney disease with stage 1 through stage 4 chronic kidney disease, or unspecified chronic kidney disease; N18.9 Chronic kidney disease, unspecified; K21.9 Gastro-esophageal reflux disease without esophagitis; E11.22 Type 2 diabetes mellitus with diabetic chronic kidney disease; E66.9 Obesity, unspecified; Z68.39 Body mass index [BMI] 39.0-39.9, adult; Z86.16 Personal history of COVID-19; Z90.89 Acquired absence of other organs; Z88.8 Allergy status to other drugs, medicaments and biological substances; Z79.84 Long term (current) use of oral hypoglycemic drugs; Z79.899 Other long term (current) drug therapy
CPT/HCPCS: 36415; 80053; 83735; 85025; 96361; 96374; 96375; 99284; J2270; J2405; J7030; 99283

== ENCOUNTER 2024-06-05 09:42 | Day surgery (SDC) | payer BC ==
[~2024-06-05 09:42] MED LIST: Sodium Chloride 0.9% 10 ML Syringe FLUSH PRN; Sodium Chloride 0.9% 10 ML Syringe FLUSH SCH
[2024-06-05] MEDS ORDERED: Propofol 200 MG/20 ML SDV ONE (10:20)
[2024-06-05] MEDS ORDERED: Ondansetron 4 MG/2 ML SDV ONE (10:21)
[2024-06-05] MEDS ORDERED: Dexamethasone 4 MG/ML 5 ML MDV ONE (10:21)
[2024-06-05] MEDS ORDERED: Rocuronium 50 MG/5 ML Vial ONE (10:21)
[2024-06-05] MEDS ORDERED: ceFAZolin 2 GM Vial ONE (10:21)
[2024-06-05] MEDS ORDERED: Lidocaine 2% 5 ML SDV ONE (10:21)
[2024-06-05] MEDS ORDERED: Midazolam 1 MG/ML 2 ML SDV ONE (10:23)
[2024-06-05] MEDS ORDERED: fentaNYL 250 MCG/5 ML SDV ONE (10:23)
[2024-06-05] MEDS: Lactated Ringers 1,000 ML IV SCH (10:30)
[2024-06-05] MEDS ORDERED: ePHEDrine 50 MG/ML SDV ONE (11:25)
[2024-06-05] MEDS ORDERED: Neostigmine Methylsulfate 10 MG/10 ML MDV ONE (11:39)
[2024-06-05] MEDS ORDERED: Glycopyrrolate 0.2 MG/ML 2 ML SDV ONE (11:39)
[2024-06-05] MEDS ORDERED: Lactated Ringers 0 ML ONE (12:47)
[2024-06-05] MEDS ORDERED: Lactated Ringers 1,000 ML ONE (12:47)
[2024-06-05] MEDS: Bupivacaine 0.5% 30 ML SDV ONE (12:50)
[2024-06-05] MEDS: EPINEPHrine 1 MG/ML SDV ONE (12:50)
[2024-06-05] MEDS ORDERED: fentaNYL 100 MCG/2 ML SDV IVPUSH PRN (14:04)
[2024-06-05] MEDS ORDERED: Ondansetron 4 MG/2 ML SDV IVPUSH PRN (14:04)
[2024-06-05] MEDS ORDERED: oxyCODONE 5 MG Tab PO PRN (14:25)
[2024-06-05] MEDS: HYDROmorphone 0.5 MG/0.5 ML Syringe IVPUSH PRN (14:39)
== END 2024-06-05 16:30 | disposition home or self-care (01) ==
LOC: JD.SDS 09:42
PROVIDERS: ATTEND Surgery
DX: K80.10 Calculus of gallbladder with chronic cholecystitis without obstruction (principal); K29.50 Unspecified chronic gastritis without bleeding; K21.00 Gastro-esophageal reflux disease with esophagitis, without bleeding; K83.8 Other specified diseases of biliary tract; E11.22 Type 2 diabetes mellitus with diabetic chronic kidney disease; I12.9 Hypertensive chronic kidney disease with stage 1 through stage 4 chronic kidney disease, or unspecified chronic kidney disease; N18.30 Chronic kidney disease, stage 3 unspecified; E78.00 Pure hypercholesterolemia, unspecified; Z87.891 Personal history of nicotine dependence; Z79.84 Long term (current) use of oral hypoglycemic drugs; Z79.4 Long term (current) use of insulin; Z79.899 Other long term (current) drug therapy
CPT/HCPCS: 43239; 47562; 82947; J0171; J0665; J0690; J1100; J2250; J2405; J2704; J2710; J3010; J3490; J7120; 00790

== ENCOUNTER 2024-06-28 19:11 | Emergency (ER) | payer BC ==
[2024-06-28] MEDS: Acetaminophen 325 MG Tab PO ONE (20:17)
[2024-06-28] MEDS: Ketorolac 30 MG/ML SDV IM ONE (20:18)
== END 2024-06-28 22:18 | disposition home or self-care (01) ==
LOC: JD.ED 19:11
DX: M16.12 Unilateral primary osteoarthritis, left hip (principal); I12.9 Hypertensive chronic kidney disease with stage 1 through stage 4 chronic kidney disease, or unspecified chronic kidney disease; N18.9 Chronic kidney disease, unspecified; E78.00 Pure hypercholesterolemia, unspecified; E11.22 Type 2 diabetes mellitus with diabetic chronic kidney disease; K21.9 Gastro-esophageal reflux disease without esophagitis; Z88.1 Allergy status to other antibiotic agents; Z79.899 Other long term (current) drug therapy; Z86.16 Personal history of COVID-19
CPT/HCPCS: 72192; 73552; 99284; A9270

== ENCOUNTER 2024-12-29 08:10 | Emergency (ER) | payer BC ==
[2024-12-29 09:11] LABS: BASOPHILS ABSOLUTE AUTO 0.1 K/mm3 (0.0-0.2); BASOPHILS PERCENT AUTO 0.7 % (0.0-1.0); EOSINOPHILS ABSOLUTE AUTO 0.1 K/mm3 (0.0-0.4); EOSINOPHILS PERCENT AUTO 1.1 % (0.0-6.0); IMMATURE GRAN ABSOLUTE AUTO 0.01 K/mm3 (0.00-0.05); IMMATURE GRAN PERCENT AUTO 0.1 % (0.0-0.4); LYMPHOCYTES ABSOLUTE AUTO 1.9 K/mm3 (1.0-4.8); LYMPHOCYTES PERCENT AUTO 24.5 % (24.0-44.0); MEAN PLATELET VOLUME 9.4 fl (9.4-12.3); MONOCYTES ABSOLUTE AUTO 0.4 K/mm3 (0.0-0.8); MONOCYTES PERCENT AUTO 5.3 % (0.0-8.0); NEUTROPHILS ABSOLUTE AUTO 5.2 K/mm3 (1.8-7.7); NEUTROPHILS PERCENT AUTO 68.3 % (41.0-71.0); NRBC ABSOLUTE 0.00 (0.00-0.02); NRBC PERCENT 0.0 % (0.0-0.2); PLATELET COUNT,PLT 236 K/mm3 (150-400); RED BLOOD CELL COUNT 5.55 M/mm3 (4.10-5.30); WHITE BLOOD CELL COUNT,WBC 7.56 K/mm3 (3.9-11.3)
[2024-12-29 09:17] LABS: A/G RATIO 1.0 (1-2); ALANINE AMINOTRANSFERASE,ALT 43.0 U/L (14-59); ASPARTATE AMNIOTRANSFERASE,AST 15.0 U/L (15-37); BILIRUBIN TOTAL 0.4 mg/dL (0.2-1.0); BLOOD UREA NITROGEN,BUN 35.0 mg/dL (7-18); CARBON DIOXIDE,CO2 29.0 mEq/L (21-32); CHLORIDE,CL 104.0 mEq/L (98-107); CREATINE KINASE,CK 49.0 U/L (26-192); CREATININE 1.6 mg/dL (0.55-1.02); EST CRCL DRUG DOSING (CG) 32.9 mL/min; ESTIMATED GFR 39.0 mL/min (>60); GLUCOSE RANDOM 112.0 mg/dL (70-99); POTASSIUM,K 4.4 mEq/L (3.5-5.1); PROTEIN TOTAL,TP 7.7 g/dl (6.4-8.2); SODIUM,NA 140.0 mEq/L (136-145)
== END 2024-12-29 11:32 | disposition home or self-care (01) ==
LOC: JD.ED 08:10
DX: K52.9 Noninfective gastroenteritis and colitis, unspecified (principal); E78.00 Pure hypercholesterolemia, unspecified; I12.9 Hypertensive chronic kidney disease with stage 1 through stage 4 chronic kidney disease, or unspecified chronic kidney disease; N18.9 Chronic kidney disease, unspecified; E11.22 Type 2 diabetes mellitus with diabetic chronic kidney disease; K21.9 Gastro-esophageal reflux disease without esophagitis; Z86.16 Personal history of COVID-19; Z88.8 Allergy status to other drugs, medicaments and biological substances; Z79.899 Other long term (current) drug therapy
CPT/HCPCS: 36415; 80053; 82550; 83690; 83735; 85025; 85652; 86140; 87045; 87046; 87493; 87798; 87899; 99284; A9270; J7030